=== PATIENT | female | born 1975 | race Caucasian/White ===

== ENCOUNTER 2018-03-19 00:16 | Emergency (ER) | payer MEDICAID ==
[~2018-03-19] VITALS: Ht 170.2 cm; Wt 93.0 kg
[~2018-03-19 00:16] MED LIST: MEDR10TA PO; ONDA4TAB6 PO
[2018-03-19 00:22] VITALS: BP 128/87
== END 2018-03-19 01:37 | disposition left against medical advice (07) ==
LOC: ER 00:17
DX: R21 Rash and other nonspecific skin eruption (principal); Z53.21 Procedure and treatment not carried out due to patient leaving prior to being seen by health care provider

== ENCOUNTER 2021-01-07 08:09 | Emergency (ER) | payer MEDICAID ==
[~2021-01-07] VITALS: Ht 167.6 cm; Wt 77.3 kg
[2021-01-07] MEDS ORDERED: acetaminophen 325mg tablet PO STA (08:21)
[2021-01-07] MEDS ORDERED: normal saline 1000ML IV soln IV ONE (08:25)
[2021-01-07] MEDS ORDERED: vancomycin/NS 1 GM ADD-VANTAGE 250 ML IV ONE (08:55)
[2021-01-07] MEDS ORDERED: CefTRIAXone/D5W-Rocephin 1gm 50 ML IV ONE (08:55)
--- NOTE | 2021-01-07 09:03 | NUR ---
unable to get iv on pt 2 attempts made ,pt is iv drug user ,md is aware ,paged picc line nurse.
--- NOTE | 2021-01-07 09:14 | NUR ---
experimental psychologist pati at bedside.
[2021-01-07 09:19] LABS: BASOPHILS % (AUTO) 0.1 % (0-1); EOSINOPHILS % (AUTO) 0 % (0-6); HEMOGLOBIN 9.3 g/dl (12.0-16.0); LYMPHOCYTES # (AUTO) 1.2 X10'3 (1.1-4.8); LYMPHOCYTES % (AUTO) 7.4 % (21-51); MEAN CORPUSCULAR HEMOGLOBIN 20.1 PG (27.0-31.0); MEAN CORPUSCULAR HGB CONC 31.1 g/dL (33.0-36.5); MEAN CORPUSCULAR VOLUME 64.6 FL (78-98); MEAN PLATELET VOLUME 7.4 FL (7.4-10.4); MONOCYTES # (AUTO) 0.9 X10'3 (0-0.9); MONOCYTES % (AUTO) 5.5 % (2-12); NEUTROPHILS # (AUTO) 14.3 X10'3 (1.8-7.7); PLATELET COUNT 387 X10'3 (140-440); RED BLOOD COUNT 4.65 X10'6 (4.20-5.60); RED CELL DISTRIBUTION WIDTH 18.3 % (11.5-14.5); WHITE BLOOD COUNT 16.4 X10'3 (4.5-11.0)
--- NOTE | 2021-01-07 09:29 | NUR ---
paged the picc line nurse 3 times to start iv line , and charge nurse sohail is aware.
[2021-01-07 09:33] LABS: ALANINE AMINOTRANSFERASE 30 U/L (12-78); ALBUMIN 2.7 G/DL (3.4-5.0); ALBUMIN/GLOBULIN RATIO 0.5 (1.1-1.5); ALKALINE PHOSPHATASE 98 IU/L (46-116); ANION GAP 13 (8-16); ASPARTATE AMINO TRANSFERASE 38 U/L (10-37); BILIRUBIN,TOTAL 0.5 MG/DL (0.1-1.0); BLOOD UREA NITROGEN 11 MG/DL (7-18); BUN/CREATININE RATIO 10.7 (6.6-38.0); CALCIUM 8.1 MG/DL (8.5-10.1); CHLORIDE 97 MMOL/L (99-107); CREATININE 1.03 MG/DL (0.40-0.90); GLUCOSE 144 MG/DL (70-104); POTASSIUM 3.3 MMOL/L (3.5-5.1); SODIUM 133 MMOL/L (135-145); TOTAL CARBON DIOXIDE 23.5 MMOL/L (24-32); TOTAL PROTEIN 7.7 G/DL (6.4-8.2); eGFR 58 ML/MIN
[2021-01-07 09:50] VITALS: BP 105/73
--- NOTE | 2021-01-07 09:54 | NUR ---
PICC LINE IS NOT AVAIALBLE TODAY ,TRIED 2 MORE TIMES UNSUCCESSFULL ,STEPHENIE MCCLELLAN IS GOING TO START THE LINE.
--- NOTE | 2021-01-07 10:00 | NUR ---
PT TOLD THE RN VY THAT SHE WANTS TO LEAVE AGAINST MEDICAL ADVICE ,"I DON'T WANT TO BE IN THE HOSPITAL ,WANT TO GO HOME" .I TALKED TO THE PT AND SHE STATED THAT I JUST WANT TO GO HOME AND REST I JUST NEED TO KNOW IF I HAVE COVID OR NOT .INFORME DTT WILL CHECK THE COVID RESULTS.
--- NOTE | 2021-01-07 10:07 | NUR ---
PT SIGNED THE PAPERWORK FOR AMA ,DR ABERNATHY AT BEDSIDE INFORMING THAT IT WOULD LEAD TO LIFE THREATNING COMPLICATION ,PT STATED I JUST WANT TO GO HOME WITH ORAL ABX ,DR ABERNATHY AGREES TO SEND PT WITH ORAL ABX.
[2021-01-07] MEDS ORDERED: SULF1TAB49 PO (10:20)
[2021-01-07] MEDS ORDERED: CEPH-585 PO (10:20)
[2021-01-07] MEDS ORDERED: cephalexin 500mg capsule PO ONE (10:20)
[2021-01-07] MEDS ORDERED: sulfamethoxazole/trimethoprim DS (800/160mg) tablet PO ONE (10:20)
--- NOTE | 2021-01-07 10:39 | NUR ---
Pt left the department.
[2021-01-07 11:45] LABS: ANISOCYTOSIS 2+; ELLIPTOCYTES FEW; LARGE PLATELETS FEW; MICROCYTOSIS 2+; PLATELET ESTIMATE NORMAL
[2021-01-08] MEDS ORDERED: NO HOME MEDS (22:56)
== END 2021-01-07 10:42 | disposition left against medical advice (07) ==
LOC: ER 08:10
DX: L03.115 Cellulitis of right lower limb (principal); Z20.822 Contact with and (suspected) exposure to COVID-19; A41.9 Sepsis, unspecified organism; F11.90 Opioid use, unspecified, uncomplicated; R05 Cough; R11.2 Nausea with vomiting, unspecified; R06.02 Shortness of breath; R53.83 Other fatigue; J45.909 Unspecified asthma, uncomplicated; F17.200 Nicotine dependence, unspecified, uncomplicated; Z98.890 Other specified postprocedural states; Z56.0 Unemployment, unspecified; Z79.2 Long term (current) use of antibiotics; Z79.899 Other long term (current) drug therapy
CPT/HCPCS: 36415; 71045; 73552; 80053; 83605; 84145; 85008; 85025; 87040; 87635; 93005; 99285; C9803

== ENCOUNTER 2021-01-08 17:47 | Inpatient (IN) | payer MEDICAID ==
[~2021-01-08] VITALS: Ht 167.6 cm; Wt 81.8 kg
[~2021-01-08 17:47] MED LIST changes: +CEPH-585 PO; +SULF1TAB49 PO
[2021-01-08] MEDS ORDERED: piperacillin/tazo 3.375gm/50ml 50 ML IV ONE (19:00)
[2021-01-08] MEDS ORDERED: vancomycin/NS 1 GM ADD-VANTAGE 250 ML IV ONE (19:00)
[2021-01-08] MEDS ORDERED: normal saline 1000ML IV soln IV ONE (19:00)
[2021-01-08 20:19] LABS: EOSINOPHILS # (AUTO) 0.1 X10'3 (0-0.9); LYMPHOCYTES # (AUTO) 1.4 X10'3 (1.1-4.8)
[2021-01-08 20:20] LABS: BASOPHILS # (AUTO) 0.1 X10'3 (0-0.2); BASOPHILS % (AUTO) 0.6 % (0-1); EOSINOPHILS % (AUTO) 0.7 % (0-6); HEMATOCRIT 32.2 % (35.0-45.0); HEMOGLOBIN 10.2 g/dl (12.0-16.0); LYMPHOCYTES % (AUTO) 14.4 % (21-51); MEAN CORPUSCULAR HEMOGLOBIN 20.6 PG (27.0-31.0); MEAN CORPUSCULAR HGB CONC 31.8 g/dL (33.0-36.5); MEAN PLATELET VOLUME 7.6 FL (7.4-10.4); MONOCYTES # (AUTO) 1.2 X10'3 (0-0.9); MONOCYTES % (AUTO) 11.9 % (2-12); NEUTROPHILS # (AUTO) 7.1 X10'3 (1.8-7.7); NEUTROPHILS % (AUTO) 72.4 % (42-75); PLATELET COUNT 411 X10'3 (140-440); RED BLOOD COUNT 4.95 X10'6 (4.20-5.60); RED CELL DISTRIBUTION WIDTH 18.1 % (11.5-14.5); WHITE BLOOD COUNT 9.8 X10'3 (4.5-11.0)
[2021-01-08 20:44] LABS: ALANINE AMINOTRANSFERASE 38 U/L (12-78); ALBUMIN 2.9 G/DL (3.4-5.0); ALBUMIN/GLOBULIN RATIO 0.5 (1.1-1.5); ALKALINE PHOSPHATASE 107 IU/L (46-116); ANION GAP 7 (8-16); BILIRUBIN,TOTAL 0.4 MG/DL (0.1-1.0); BLOOD UREA NITROGEN 15 MG/DL (7-18); BUN/CREATININE RATIO 14.2 (6.6-38.0); C-REACTIVE PROTEIN 23.58 MG/DL (0.0-0.5); CALCIUM 8.8 MG/DL (8.5-10.1); CHLORIDE 101 MMOL/L (99-107); CREATININE 1.06 MG/DL (0.40-0.90); ETHANOL < 0.010 GM/DL (0.0-0.010); GLUCOSE 114 MG/DL (70-104); SODIUM 136 MMOL/L (135-145); TOTAL CARBON DIOXIDE 27.6 MMOL/L (24-32); TOTAL PROTEIN 8.5 G/DL (6.4-8.2); eGFR 56 ML/MIN
[2021-01-08 20:52] LABS: ASPARTATE AMINO TRANSFERASE 79 U/L (10-37); POTASSIUM 4.3 MMOL/L (3.5-5.1)
[2021-01-08] MEDS ORDERED: iohexol 300mg/ml 100ml inj. ONE (21:07)
--- NOTE | 2021-01-08 21:13 | NUR ---
TO CT VIA [facility]
[2021-01-08 21:17] LABS: BANDS% (MANUAL) 5 % (0-10); LYMPHOCYTES % (MANUAL) 12 % (21-51); MONOCYTES % (MANUAL) 4 % (2-12); NEUTROPHILS % (MANUAL) 78 % (42-75); TOTAL CELLS COUNTED 100
[2021-01-08 21:18] LABS: ANISOCYTOSIS 2+; EOSINOPHILS % (MANUAL) 1 % (0-6); MICROCYTOSIS 2+; PLATELET ESTIMATE NORMAL
[2021-01-08] MEDS ORDERED: morphine 4 MG/ML inj SYRINge IV PRN (22:05)
[2021-01-08] MEDS ORDERED: ondansetron/PF 4mg/2ml inj IV ONE (22:05)
[2021-01-08] MEDS ORDERED: NO HOME MEDS (22:56)
[2021-01-08] MEDS ORDERED: magnesium hydroxide 30ml (MOM) UD suspension PO PRN (23:20)
[2021-01-08] MEDS ORDERED: methadone 10mg tablet PO ONE (23:20)
[2021-01-08] MEDS ORDERED: mag hydrox/Alum hydrox/simeth 30ml oral suspension PO PRN (23:20)
[2021-01-08] MEDS ORDERED: ondansetron/PF 4mg/2ml inj IV PRN (23:20)
[2021-01-09 01:11] LABS: URINE AMPHETAMINE SCREEN POSITIVE (Neg); URINE BARBITUATE SCREEN NEGATIVE (Neg); URINE BENZODIAZEPINES SCREEN NEGATIVE (Neg); URINE CANNABINOID SCREEN NEGATIVE (Neg); URINE COCAINE SCREEN NEGATIVE (Neg); URINE METHADONE SCREEN NEGATIVE (Neg); URINE OPIATE SCREEN POSITIVE (Neg); URINE PHENCYCLIDINE SCREEN NEGATIVE (Neg)
[2021-01-09] MEDS: acetaminophen 325mg tablet PO PRN ×2 (01:12→21:28)
[2021-01-09 01:49] LABS: CLARITY,URINE CLEAR (Clear); COLOR,URINE YELLOW (Yellow); GLUCOSE, URINE NEGATIVE (Neg); KETONES,URINE NEGATIVE (Neg); OCCULT BLOOD,URINE NEGATIVE (Neg); PROTEIN,URINE NEGATIVE (Neg); UA COLLECTION TYPE CLN CATCH MIDSTREAM
[2021-01-09 01:50] LABS: LEUKOCYTE ESTERASE ,URINE NEGATIVE (Neg); NITRITES, URINE NEGATIVE (Neg)
[2021-01-09] MEDS: piperacillin/tazo 3.375gm/50ml 50 ML IV SCH ×3 (03:57→21:24)
[2021-01-09] MEDS: docusate sod 100mg capsule PO SCH ×2 (08:37→21:25)
[2021-01-09] MEDS: vancomycin/NS 1 GM ADD-VANTAGE 250 ML IV SCH ×2 (08:37→21:24)
[2021-01-09] MEDS: heparin, porcine 5000 units/ml vial SQ SCH ×2 (08:43→21:26)
--- NOTE | 2021-01-09 12:38 | NUR ---
assumed care of pt from Darya CASIANO
--- NOTE | 2021-01-09 13:10 | NUR ---
first contact with pt, pt is lying in dark room playing on phone, pt is GCS 15, alert and oriented x3, resp even and unlabored, skin p/w/d, pt c/o rt ankle, calf pain, redness, swelling, +cms to rt foot, strong pedal pulse on rt foot, pt smokes 1/2 ppd, I suggested a nicotine patch, pt also coming off heroin, last used 2 days ago, pt c/o feeling chills, insomnia, did received methadone earlier, paged hospitalist. Pt is waiting for bed assignment
--- NOTE | 2021-01-09 14:15 | NUR ---
dr fisher aware of pt needing nicotine patch and methadone for heroin withdrawal, he gave verbal order for nicotine patch 14mg
[2021-01-09] MEDS ORDERED: nicotine 14mg patch - 24hr TD ONE (14:20)
[2021-01-09] MEDS: methadone 10mg tablet PO SCH (15:30)
--- NOTE | 2021-01-09 15:34 | NUR ---
pt is eating lunch, andra well, no n/v, also amb with steady gait to restroom, had bowel movement,
--- NOTE | 2021-01-09 16:56 | NUR ---
received report from STEPHENIE Almodovar. awaiting patient arrival.
--- NOTE | 2021-01-09 16:56 | NUR ---
report to Ghazal CASIANO
[2021-01-09 18:25] VITALS: BP 122/80
--- NOTE | 2021-01-09 18:31 | NUR ---
Problems reprioritized. Patient report given, questions answered & plan of care reviewed with STEPHENIE Gay.
[2021-01-09] MEDS: lactobacillus rhamnosus 10,000 MMU CELLS/CAPSULE PO SCH (21:25)
[2021-01-10] VITALS: BP 108/75
[2021-01-10] MEDS: temazepam 15mg capsule PO PRN ×2 (01:34→03:52)
[2021-01-10] MEDS: piperacillin/tazo 3.375gm/50ml 50 ML IV SCH ×2 (03:52→13:36)
--- NOTE | 2021-01-10 06:49 | NUR ---
Patient in room [facility] 349B. I have received report from STEPHENIE RUDOLPH and had the opportunity to ask questions and assume patient care.
--- NOTE | 2021-01-10 06:54 | NUR ---
Problems reprioritized. Patient report given, questions answered & plan of care reviewed with Erika CASIANO.
[2021-01-10 07:00] VITALS: BP 126/90
[2021-01-10] MEDS ORDERED: VANCOMYCIN LEVEL IV ONE (07:30)
[2021-01-10] MEDS: docusate sod 100mg capsule PO SCH (10:24)
[2021-01-10] MEDS: methadone 10mg tablet PO SCH (10:24)
[2021-01-10] MEDS: lactobacillus rhamnosus 10,000 MMU CELLS/CAPSULE PO SCH (10:24)
[2021-01-10] MEDS: heparin, porcine 5000 units/ml vial SQ SCH (10:25)
[2021-01-10] MEDS: vancomycin/NS 1 GM ADD-VANTAGE 250 ML IV SCH (10:25)
[2021-01-10 11:00] VITALS: BP 115/79
[2021-01-10] MEDS ORDERED: CLIN-97 PO (15:34)
[2021-01-10] MEDS ORDERED: vancomycin/NS 1 GM ADD-VANTAGE 250 ML IV SCH (18:00)
--- NOTE | 2021-01-10 20:02 | NUR ---
PATIENT STABLE AND APPROPRIATE FOR DISCHARGE, IV TAKEN OUT, EDUCATION GIVEN, NEW MEDS E-SCRIPTED TO PREFERRED PHARMACY, ALL BELONGINGS SENT WITH PATIENT, PATIENT TAKEN TO LOBBY TO AN AWAITING CAR WHERE FAMILY MEMBER WILL TAKE PATIENT HOME
[2021-01-11] MEDS ORDERED: VANCOMYCIN LEVEL IV ONE (09:30)
== END 2021-01-10 17:07 | disposition home or self-care (01) | DRG 720 ==
LOC: ER 17:48 → ED HOLD 23:18 → SUR 3N 01-09 17:18
PROVIDERS: ADMIT Internal Medicine; ATTEND Family Medicine
PROC: BQ2R1ZZ Computerized Tomography (CT Scan) of Right Lower Extremity using Low Osmolar Contrast (ICD-10-PCS; principal; 2021-01-08)
DX: A41.9 Sepsis, unspecified organism (principal); F11.29 Opioid dependence with unspecified opioid-induced disorder; J45.909 Unspecified asthma, uncomplicated; L03.115 Cellulitis of right lower limb; F15.10 Other stimulant abuse, uncomplicated; S71.101A Unspecified open wound, right thigh, initial encounter; X58.XXXA Exposure to other specified factors, initial encounter; F17.200 Nicotine dependence, unspecified, uncomplicated; Z98.891 History of uterine scar from previous surgery; Z56.0 Unemployment, unspecified; Y93.89 Activity, other specified; Y92.89 Other specified places as the place of occurrence of the external cause; Y99.8 Other external cause status; Z71.51 Drug abuse counseling and surveillance of drug abuser
CPT/HCPCS: 36415; 73701; 80053; 80202; 80305; 80320; 81003; 83605; 84145; 85007; 85025; 85651; 86140; 87040; 96365; 96368; 96375; 99285; G0378; J1644; J2270; J2405; J2543; J3370; J7030; Q9967

== ENCOUNTER 2024-12-06 17:45 | Emergency (ER) | payer MEDICAID ==
[~2024-12-06] VITALS: Ht 167.6 cm; Wt 88.0 kg
[~2024-12-06 17:45] MED LIST changes: -CEPH-585 PO; +CLIN-224 PO; -MEDR10TA PO; -ONDA4TAB6 PO; -SULF1TAB49 PO
--- NOTE | 2024-12-06 18:07 | ELECTROCARDIOGRAPH REPORT ---
[facility] Test Date: 2024-12-06 Test Time: 18:06:23 Pat Name: MASSIMO BEJARANO Department: EMERGENCY ROOM Room: Gender: F Tag Maker: DAKOTAH : 1975 Requested By: DORIS KIMBROUGH Order Number: [id number] Reading MD: Dr. Uriah Negrete Measurements Intervals [place] Rate: 104 P: 24 ID: [id number] QRS: -19 QRSD: 96 T: 28 QT: 347 QTc: 457 Interpretive Statements Sinus tachycardia Low voltage, precordial leads Abnormal R-wave progression, late transition Left ventricular hypertrophy Electronically Signed On 12-07-2024 6:12:[address] Uriah Negrete Please click the below link to view image of tracing.
[2024-12-06 18:10] VITALS: BP 145/82; PULSE 101; TEMP 98.2; O2SAT 95
[2024-12-06 18:20] VITALS: RESP 16
--- NOTE | 2024-12-06 18:23 | Physician Documentation ---
History of Present Illness ~ General Chief Complaint: General Stated Complaint: HEAT RELATED Time Seen by MD: 17:51 Primary Medical Doctor: Chris Mode of Arrival: EMS History of Present Illness Initial Comments 49-year-old female who presents to the ED with a complaint of heat related symptoms. She was found asleep by EMS reports recent methamphetamine use chronic history of methamphetamine use smells of urine. No current medical complaints Medication Reconciliation Allergies: Coded Allergies: No Known Allergies (Unverified , 12/06/24) Scheduled Clindamycin HCL* (Clindamycin HCL*), 1 CAP PO Q6H Past Medical History Past Medical History: Asthma Past Surgical History: Alcohol Use: Occasionally Drug Use: methamphetamine, heroin Lives In: Home Occupation: unemployed Review of Systems All Other Systems at this time: Reviewed and Negative ROS As stated above in the HPI, otherwise all systems are reviewed and negative. Physical Exam Physical Exam Vital Signs: Temperature: 98.6, Source: Oral, Heart Rate: 110, Respiratory Rate: 16, BP: 164/90, Pulse Oximetry: 95, Weight: 88.000 Oxygen Flow Rate: 0 Physical Exam General: Alert, no apparent distress. Respiratory: Lungs clear, no respiratory distress. Cardiovascular: Regular rate and rhythm, no murmurs. Gastrointestinal: Soft, nontender, nondistended. Bowels sounds present. Neurologic: Oriented x4. Psychiatric: Normal mood and affect. Progress Results/Orders Results/Orders Orders - MANUEL KIMBROUGH NP Urinalysis, Cult If Indicated (12/06/24 18:19) Completed Orders - MANUEL KIMBROUGH NP Electrocardiogram (12/06/24 ) Vital Signs 12/06/24 12/06/24 17:46 17:54 Temp 98.6 Pulse 110 Resp 16 B/P (MAP) 164/90 Pulse Ox 95 O2 Flow Rate 0 Medical Decision Making Findings Patient is refusing treatment and is A&O x4.. At this time I can not rule out a UTI or other infections. Patient wants to leave against medical advice. I advised her of the risks up to including Departure Disposition: 07 LEFT AGAINST MEDICAL ADVICE Impression: Primary Impression: General medical exam Referrals: NO PRIMARY CARE PROVIDER (PCP) Education Educated regarding: diagnosis Signature Scribe Signature: e Attestation: Scribed for Manuel Kimbrough Choirmaster by Manuel Pinto NP . 12/06/24 18:35 MANUEL KIMBROUGH SENIOR PROGRAMMER Dec 06, 2024 18:23
== END 2024-12-06 18:40 | disposition left against medical advice (07) ==
LOC: ER 17:45
DX: Z00.00 Encounter for general adult medical examination without abnormal findings (principal); F15.90 Other stimulant use, unspecified, uncomplicated; F11.90 Opioid use, unspecified, uncomplicated; J45.909 Unspecified asthma, uncomplicated; I49.8 Other specified cardiac arrhythmias; Z72.89 Other problems related to lifestyle; Z56.0 Unemployment, unspecified
CPT/HCPCS: 93005; 99283